=== PATIENT | male | born 1945 | race Caucasian/White ===

== ENCOUNTER 2021-04-25 06:50 | Outpatient (CLI) | payer OTHER ==
[~2021-04-25] VITALS: Ht 193 cm; Wt 95.5 kg
[2021-04-25] MEDS ORDERED: ATEN100T PO (13:58)
[2021-04-25] MEDS ORDERED: GLIP10TA13 PO (13:58)
[2021-04-25] MEDS ORDERED: LORA10TA7 PO (13:58)
[2021-04-25] MEDS ORDERED: LORA-404 PO (13:58)
[2021-04-25] MEDS ORDERED: OMEP40CA6 PO (13:58)
[2021-04-25] MEDS ORDERED: TMSL.4C PO (13:58)
[2021-04-25] MEDS ORDERED: TIOT4MIS2 IH (13:58)
[2021-04-25] MEDS ORDERED: METH-732 PO (13:58)
[2021-04-25] MEDS ORDERED: FAMO20TA3 PO (13:58)
[2021-04-25] MEDS ORDERED: ASPI-999 PO (13:58)
[2021-04-25] MEDS ORDERED: VENL150T PO (13:58)
[2021-04-25] MEDS ORDERED: ATOR20TA66 PO (13:58)
[2021-04-25] MEDS ORDERED: METF-399 PO (13:58)
[2021-04-25] MEDS ORDERED: TERA10CA3 PO (13:58)
[2021-04-25] MEDS ORDERED: ALOG12.52 PO (13:58)
[2021-04-25] MEDS ORDERED: LISI40TA9 PO (13:58)
[2021-04-25] MEDS ORDERED: CYPR4TAB41 PO (13:58)
[2021-04-25] MEDS ORDERED: BUDE10.26 IH (13:58)
== END 2021-04-25 13:58 | disposition home or self-care (01) ==
LOC: PREOP 06:50
PROVIDERS: ATTEND Specialist
DX: Z01.818 Encounter for other preprocedural examination (principal)

== ENCOUNTER 2021-04-28 06:57 | Day surgery (SDC) | payer OTHER ==
[~2021-04-28] VITALS: Ht 193 cm; Wt 95.5 kg
[~2021-04-28 06:57] MED LIST: ALOG12.52 PO; ASPI-999 PO; ATEN100T PO; ATOR20TA66 PO; BUDE10.26 IH; CYPR4TAB41 PO; FAMO20TA3 PO; GLIP10TA13 PO; LISI40TA9 PO; LORA-404 PO; LORA10TA7 PO; METF-399 PO; METH-732 PO; OMEP40CA6 PO; TERA10CA3 PO; TIOT4MIS2 IH; TMSL.4C PO; VENL150T PO
[2021-04-28] MEDS ORDERED: LIDOCAINE PF 1% 2 ML VIAL IR PRN (07:15)
[2021-04-28] MEDS ORDERED: TIMOLOL MALEATE 0.5% 5 ML (TIMOPTIC) BTL OU PRN (07:15)
[2021-04-28] MEDS ORDERED: MOXIFLOXACIN OPHTH SOLN 5 MG/ML 0.3 ML SYRINGE OP ONE (07:15)
[2021-04-28] MEDS: TETRACAINE 0.5% OPHTH SOLN 4 ML BTL (SINGLE DOSE ONLY) OU PRN ×4 (07:15→07:35)
[2021-04-28] MEDS ORDERED: POVIDONE (BETADINE) OPHTH SOLN 5% 30 ML OP ONE (07:15)
[2021-04-28 07:21] VITALS: BP 161/89
[2021-04-28] MEDS: TROPICAMIDE 1% OPH SOLN (MYDRIACYL) 15 ML BTL OP SCH ×3 (07:23→07:35)
[2021-04-28] MEDS: PHENYLEPHRINE 10% OPHTH (NEO-SYN) 5 ML BTL OU SCH ×3 (07:23→07:35)
--- NOTE | 2021-04-28 08:04 | Ophthalmologist Pre-Op Note ---
Pre-Operative Progress Note H&P Reviewed The H&P was reviewed, patient examined and no changes noted. Date H&P Reviewed: Apr 28, 2021 Time H&P Reviewed: 08:03 Pre-Op Dx Cataract, Left Eye AMILCAR MENDOZA MD Apr 28, 2021 08:04
[2021-04-28] MEDS ORDERED: MIDAZOLAM 2 MG/2 ML (VERSED) VIAL ONE (08:09)
--- NOTE | 2021-04-28 08:24 | Ophthalmology Operative Report ---
Cataract removal/placement IOL PREOPERATIVE DIAGNOSIS: Cataract Left Eye POSTOPERATIVE DIAGNOSIS: Cataract Left Eye PROCEDURE: Cataract removal and placement of posterior chamber implant, left eye SURGEON: Param Mendoza ANESTHESIA: Topical with sedation COMPLICATIONS: None ESTIMATED BLOOD LOSS: Minimal DESCRIPTION OF PROCEDURE: After proper informed consent was obtained, the patient, a 75 male, was taken to the Operating Room and the left eye was anesthetized with tetracaine. The left eye was then prepped and draped in the usual manner. A wire lid speculum was placed. A paracentesis was made at the left hand position. Preservative free lidocaine was injected into the anterior chamber followed by viscoelastic. A clear corneal incision was made in the temporal position. A capsulorrhexis was preformed and the central nuclear and cortical material were removed. The posterior capsule was polished and an Oz 23.5 AU00T0 was placed into the capsular bag. The residual viscoelastic was aspirated and balanced saline solution was injected into the anterior chamber. Moxifloxacin was injected into the anterior chamber. The wound was checked and found to be water tight. The patient tolerated the procedure well without complications. PARAM MENDOZA MD Apr 28, 2021 08:24
[2021-04-28] MEDS ORDERED: acetaZOLAMIDE ER 500 MG CAP (DIAMOX SEQUELS) PO ONE (08:30)
[2021-04-28 08:32] VITALS: BP 161/89
--- NOTE | 2021-04-28 12:32 | Anesthesia-General Post-Op ---
MAC Patient Condition Mental Status/LOC: Same as Preop Cardiovascular: Satisfactory Nausea/Vomiting: Absent Respiratory: Satisfactory Pain: Controlled Complications: Absent Post Op Complications Complications None Follow Up Care/Instructions Patient Instructions None needed. Anesthesiology Discharge Order Discharge Order Patient is doing well, no complaints, stable vital signs, no apparent adverse anesthesia problems. No complications reported per nursing. ROMA MARIE CRNA Apr 28, 2021 12:32
== END 2021-04-28 08:38 | disposition home or self-care (01) ==
LOC: SDC 06:57
PROVIDERS: ATTEND Specialist
DX: E11.36 Type 2 diabetes mellitus with diabetic cataract (principal); H25.12 Age-related nuclear cataract, left eye; H91.90 Unspecified hearing loss, unspecified ear; F32.A Depression, unspecified; Z79.84 Long term (current) use of oral hypoglycemic drugs; Z79.899 Other long term (current) drug therapy

== ENCOUNTER 2021-05-12 07:37 | Day surgery (SDC) | payer OTHER ==
[~2021-05-12] VITALS: Ht 193 cm; Wt 95.5 kg
[2021-05-12] MEDS ORDERED: POVIDONE (BETADINE) OPHTH SOLN 5% 30 ML OP ONE (07:45)
[2021-05-12] MEDS ORDERED: LIDOCAINE PF 1% 2 ML VIAL IR PRN (07:45)
[2021-05-12] MEDS ORDERED: TIMOLOL MALEATE 0.5% 5 ML (TIMOPTIC) BTL OU PRN (07:45)
[2021-05-12] MEDS ORDERED: MOXIFLOXACIN OPHTH SOLN 5 MG/ML 0.3 ML SYRINGE OP ONE (07:45)
[2021-05-12 07:47] VITALS: BP 143/72
[2021-05-12] MEDS: TETRACAINE 0.5% OPHTH SOLN 4 ML BTL (SINGLE DOSE ONLY) OU PRN ×4 (07:48→08:10)
[2021-05-12] MEDS: TROPICAMIDE 1% OPH SOLN (MYDRIACYL) 15 ML BTL OP SCH ×3 (08:00→08:11)
[2021-05-12] MEDS: PHENYLEPHRINE 10% OPHTH (NEO-SYN) 5 ML BTL OU SCH ×3 (08:00→08:11)
[2021-05-12] MEDS ORDERED: MIDAZOLAM 2 MG/2 ML (VERSED) VIAL ONE (08:34)
--- NOTE | 2021-05-12 08:51 | Ophthalmologist Pre-Op Note ---
Pre-Operative Progress Note H&P Reviewed The H&P was reviewed, patient examined and no changes noted. Date H&P Reviewed: May 12, 2021 Time H&P Reviewed: 08:50 Pre-Op Dx Cataract, Right Eye AMILCAR MENDOZA MD May 12, 2021 08:51
[2021-05-12] MEDS ORDERED: acetaZOLAMIDE ER 500 MG CAP (DIAMOX SEQUELS) PO ONE (09:00)
--- NOTE | 2021-05-12 09:12 | Ophthalmology Operative Report ---
Cataract removal/placement IOL PREOPERATIVE DIAGNOSIS: Cataract Right Eye POSTOPERATIVE DIAGNOSIS: Cataract Right Eye PROCEDURE: Cataract removal and placement of posterior chamber implant, right eye SURGEON: Param Mendoza ANESTHESIA: Topical with sedation COMPLICATIONS: None ESTIMATED BLOOD LOSS: Minimal DESCRIPTION OF PROCEDURE: After proper informed consent was obtained, the patient, a 75 male, was taken to the Operating Room and the right eye was anesthetized with tetracaine. The right eye was then prepped and draped in the usual manner. A wire lid speculum was placed. A paracentesis was made at the left hand position. Preservative free lidocaine was injected into the anterior chamber followed by viscoelastic. A clear corneal incision was made in the temporal position. A capsulorrhexis was preformed and the central nuclear and cortical material were removed. The posterior capsule was polished and Oz 23.0 AU00T0 IOL was placed into the capsular bag. The residual viscoelastic was aspirated and balanced saline solution was injected into the anterior chamber. Moxifloxacin was injected into the anterior chamber. The wound was checked and found to be water tight. The patient tolerated the procedure well without complications. PARAM MENDOZA MD May 12, 2021 09:12
[2021-05-12 09:22] VITALS: BP 151/82
--- NOTE | 2021-05-12 13:06 | Anesthesia-General Post-Op ---
MAC Patient Condition Mental Status/LOC: Same as Preop Cardiovascular: Satisfactory Nausea/Vomiting: Absent Respiratory: Satisfactory Pain: Controlled Complications: Absent Post Op Complications Complications None Follow Up Care/Instructions Patient Instructions None needed. Anesthesiology Discharge Order Discharge Order Patient is doing well, no complaints, stable vital signs, no apparent adverse anesthesia problems. No complications reported per nursing. KALPANA TYSON CRNA May 12, 2021 13:06
== END 2021-05-12 09:22 | disposition home or self-care (01) ==
LOC: SDC 07:37
PROVIDERS: ATTEND Specialist
DX: E11.36 Type 2 diabetes mellitus with diabetic cataract (principal); H25.11 Age-related nuclear cataract, right eye; I10 Essential (primary) hypertension; J44.9 Chronic obstructive pulmonary disease, unspecified